=== PATIENT | female | born 1945 | race Hispanic/Latino ===

== ENCOUNTER 2017-09-01 00:54 | Inpatient (IN) | payer MEDICARE ==
[~2017-09-01] VITALS: Ht 160 cm; Wt 55.8 kg
[~2017-09-01 00:54] MED LIST: LISI-613 PO; PRAV20TA4 PO; SERT25TA5 PO
[2017-09-01] MEDS ORDERED: ASPIRIN 325 MG TABLET ONE (01:18)
[2017-09-01] MEDS ORDERED: NITROGLYCERIN 1GM/1 INCH PACKET TD ONE (01:19)
[2017-09-01 01:39] LABS: BASOPHILS % (AUTO) 0.6 % (0.0-5.0); EOSINOPHILS % (AUTO) 0.8 % (0.0-8.0); HEMATOCRIT 43.8 % (36-48); LYMPHOCYTES % (AUTO) 71.3 % (21.0-51.0); MEAN CORPUSCULAR HEMOGLOBIN 30.6 pg (27.0-33.0); MEAN CORPUSCULAR HGB CONC 33.8 g/dL (32.0-36.0); MEAN CORPUSCULAR VOLUME 90.5 fL (79-99); MONOCYTES % (AUTO) 4.4 % (3.0-13.0); NEUTROPHILS % (AUTO) 22.9 % (40.0-77.0); NUCLEATED RED BLOOD CELLS 0.2 % (0.0-0.19); PLATELET COUNT (AUTO) 264 K/uL (130-400); RED BLOOD CELL COUNT(AUTO) 4.84 MIL/uL (4.00-5.50); RED CELL DISTRIBUTION WIDTH 12.4 % (11.0-15.5); WHITE BLOOD COUNT (AUTO) 21.5 K/uL (4.8-10.8)
[2017-09-01 01:51] LABS: CREATININE 0.6 mg/dL (0.5-1.5); POTASSIUM 4.5 mmol/L (3.5-5.1)
[2017-09-01 01:54] LABS: APPEARANCE,URINE Clear (CLEAR); BILIRUBIN,URINE Negative (NEGATIVE); COLOR,URINE Yellow (YELLOW); GLUCOSE, URINE (UA) Negative (NEGATIVE); KETONES,URINE Negative (NEGATIVE); LEUKOCYTE ESTERASE ,URINE Negative (NEGATIVE); NITRATE,URINE Negative (NEGATIVE); OCCULT BLOOD,URINE Negative (NEGATIVE); PROTEIN,URINE Negative (NEGATIVE); UROBILINOGEN,URINE 0.2 mg/dL (0.2-1.0)
[2017-09-01 01:56] LABS: INR 0.96 (0.85-1.15); PARTIAL THROMBOPLASTIN TIME 24.7 SEC (26.3-35.5); PROTHROMBIN TIME 10.1 SEC (9.6-11.6)
[2017-09-01 02:12] LABS: ALBUMIN 3.3 g/dL (3.5-5.0); B-TYPE NATRIURETIC PEPTIDE 57 pg/mL (0-100); BILIRUBIN,TOTAL 0.3 mg/dL (0.2-1.0); CREATINE KINASE MB 0.7 ng/mL (0.5-3.6); TOTAL PROTEIN, SERUM 6.8 g/dL (6.0-8.3)
[2017-09-01] MEDS ORDERED: ACETAMINOPHEN EXTRA STRENGTH 500 MG TABLET ONE (03:30)
[2017-09-01] MEDS ORDERED: KETOROLAC TROMETHAMINE 30MG/ML IV PRN (06:00)
[2017-09-01] MEDS ORDERED: CLONIDINE HCL 0.1 MG TABLET PO PRN (06:00)
[2017-09-01] MEDS ORDERED: ONDANSETRON HCL 4 MG/2 ML VIAL IVP PRN (06:00)
[2017-09-01] MEDS ORDERED: NITROGLYCERIN 0.4 MG SL TAB SL PRN (06:00)
[2017-09-01] MEDS ORDERED: MORPHINE SULFATE 2 MG/ML 1ML SYG IVP PRN (06:00)
[2017-09-01] MEDS ORDERED: ACETAMINOPHEN 325 MG TAB PO PRN (06:00)
[2017-09-01] MEDS ORDERED: HYDRALAZINE HCL 20 MG/ML VIAL IV PRN (06:30)
[2017-09-01] MEDS ORDERED: FAMOTIDINE/PF 20 MG/2 ML VIAL IV ONE (06:32)
[2017-09-01] MEDS ORDERED: GADOBENATE DIMEGLUMINE 10 ML IV ONE (06:36)
[2017-09-01] MEDS ORDERED: KETOROLAC TROMETHAMINE 30MG/ML ONE (08:52)
[2017-09-01 11:20] LABS: CREATINE KINASE MB 0.5 ng/mL (0.5-3.6); CREATINE KINASE, TOTAL 15 U/L (21-232); MYOGLOBIN 35 ng/mL (10-92); TROPONIN I < 0.04 ng/mL (0.00-0.06)
[2017-09-01 18:00] VITALS: BP 130/69
[2017-09-01] MEDS ORDERED: PROP40TA7 PO (18:07)
[2017-09-01] MEDS ORDERED: SIMV20TA6 PO (18:07)
[2017-09-01] MEDS ORDERED: ASPI-1197 PO (18:07)
[2017-09-01] MEDS ORDERED: OMEP40CA37 PO (18:07)
[2017-09-01 19:58] VITALS: BP 101/65
[2017-09-01] MEDS: PROPRANOLOL HCL 20 MG TAB PO SCH (21:00)
[2017-09-01] MEDS: ATORVASTATIN CALCIUM 10 MG TABLET PO SCH (21:51)
[2017-09-01] MEDS: GABAPENTIN 100 MG CAPSULE PO SCH (21:51)
[2017-09-01] MEDS: FAMOTIDINE 20MG TAB 20 MG TAB PO SCH (21:51)
[2017-09-01] MEDS: ENOXAPARIN SODIUM 40 MG/0.4 ML SYRINGE SQ SCH (22:18)
[2017-09-01 23:14] VITALS: BP 103/64
[2017-09-02 04:00] VITALS: BP 124/63
[2017-09-02 07:00] VITALS: BP 129/85
[2017-09-02] MEDS: GABAPENTIN 100 MG CAPSULE PO SCH ×2 (10:07→21:20)
[2017-09-02] MEDS: PROPRANOLOL HCL 20 MG TAB PO SCH ×2 (10:07→21:20)
[2017-09-02] MEDS: PANTOPRAZOLE SODIUM 40 MG TABLET.DR PO SCH (10:07)
[2017-09-02] MEDS: FAMOTIDINE 20MG TAB 20 MG TAB PO SCH ×2 (10:07→21:20)
[2017-09-02] MEDS: ASPIRIN 81MG TAB.CHEW PO SCH (10:07)
[2017-09-02] MEDS: ENOXAPARIN SODIUM 40 MG/0.4 ML SYRINGE SQ SCH (10:08)
[2017-09-02 11:00] VITALS: BP 128/78
[2017-09-02 16:00] VITALS: BP 120/75
[2017-09-02 20:01] VITALS: BP 136/77
[2017-09-02] MEDS: ATORVASTATIN CALCIUM 10 MG TABLET PO SCH (21:20)
[2017-09-03] VITALS: BP 100/53
[2017-09-03 03:39] LABS: HEMATOCRIT 40.8 % (36-48); MEAN CORPUSCULAR HEMOGLOBIN 31.1 pg (27.0-33.0); MEAN CORPUSCULAR HGB CONC 34.6 g/dL (32.0-36.0); MEAN CORPUSCULAR VOLUME 89.9 fL (79-99); NUCLEATED RED BLOOD CELLS 0.1 % (0.0-0.19); PLATELET COUNT (AUTO) 257 K/uL (130-400); RED BLOOD CELL COUNT(AUTO) 4.53 MIL/uL (4.00-5.50); RED CELL DISTRIBUTION WIDTH 12.7 % (11.0-15.5); WHITE BLOOD COUNT (AUTO) 17.3 K/uL (4.8-10.8)
[2017-09-03 03:53] VITALS: BP 149/74
[2017-09-03 04:39] LABS: EOSINOPHILS % (MANUAL) 6 % (1-6); LYMPHOCYTES % (MANUAL) 60 % (22-44); MONOCYTES % (MANUAL) 2 % (2-9); SEGMENTED NEUTROPHILS % 32 % (40-70)
[2017-09-03 04:40] LABS: MAN.DIFF COMMENT-IMPRESSION MANUAL DIFFERENTIAL; PLATELET MORPHOLOGY COMMENT ADEQUATE
[2017-09-03 07:00] VITALS: BP 110/74
[2017-09-03] MEDS ORDERED: REGADENOSON 0.4 MG/5 ML PF SYG IVP SCH (10:30)
[2017-09-03] MEDS ORDERED: GABA100C PO (10:49)
[2017-09-03 11:00] VITALS: BP 149/83
[2017-09-03] MEDS: FAMOTIDINE 20MG TAB 20 MG TAB PO SCH (15:07)
[2017-09-03] MEDS: ASPIRIN 81MG TAB.CHEW PO SCH (15:07)
[2017-09-03] MEDS: PROPRANOLOL HCL 20 MG TAB PO SCH (15:07)
[2017-09-03] MEDS: GABAPENTIN 100 MG CAPSULE PO SCH (15:08)
[2017-09-03] MEDS: PANTOPRAZOLE SODIUM 40 MG TABLET.DR PO SCH (15:08)
[2017-09-03] MEDS: ENOXAPARIN SODIUM 40 MG/0.4 ML SYRINGE SQ SCH (15:09)
[2017-09-03 16:00] VITALS: BP 108/57
== END 2017-09-03 18:57 | disposition home or self-care (01) | DRG 206 ==
LOC: EDH 00:54 → EDHIP 05:39 → OBSVTOIN 05:39 → 2AH 17:46
PROVIDERS: ADMIT Internal Medicine Nephrology; ATTEND Internal Medicine Nephrology
DX: M94.0 Chondrocostal junction syndrome [Tietze] (principal); R07.9 Chest pain, unspecified; D32.0 Benign neoplasm of cerebral meninges; I10 Essential (primary) hypertension; D72.829 Elevated white blood cell count, unspecified; E78.5 Hyperlipidemia, unspecified; F32.9 Major depressive disorder, single episode, unspecified; K74.60 Unspecified cirrhosis of liver; T38.0X5A Adverse effect of glucocorticoids and synthetic analogues, initial encounter; F41.9 Anxiety disorder, unspecified; Z79.899 Other long term (current) drug therapy; Z90.710 Acquired absence of both cervix and uterus; Z90.49 Acquired absence of other specified parts of digestive tract; Y92.89 Other specified places as the place of occurrence of the external cause
CPT/HCPCS: 36415; 70450; 70544; 70553; 71045; 78452; 80053; 81003; 82550; 82553; 82948; 83874; 83880; 84484; 85025; 85610; 85730; 93005; 93017; 93306; 96374; A9500; A9577; J1650; J1885; J2785; J3490

== ENCOUNTER → 2017-12-14 | Outpatient (CLI) | payer OTHER, MEDICARE ==
[~2017-12-14] MED LIST changes: +ASPI-1197 PO; +GABA100C PO; -LISI-613 PO; +OMEP40CA37 PO; -PRAV20TA4 PO; +PROP40TA7 PO; -SERT25TA5 PO; +SIMV20TA6 PO
== END | disposition home or self-care (01) ==
LOC: RAH 08:45
PROVIDERS: ATTEND Internal Medicine Gastroenterology
DX: K74.60 Unspecified cirrhosis of liver (principal)
CPT/HCPCS: 76700; 93975

== ENCOUNTER 2018-02-17 19:10 | Emergency (ER) | payer OTHER, MEDICARE ==
[2018-02-17 19:57] LABS: APPEARANCE,URINE Clear (CLEAR); BILIRUBIN,URINE Negative (NEGATIVE); COLOR,URINE Yellow (YELLOW); GLUCOSE, URINE (UA) Negative (NEGATIVE); KETONES,URINE Negative (NEGATIVE); LEUKOCYTE ESTERASE ,URINE Negative (NEGATIVE); NITRATE,URINE Negative (NEGATIVE); OCCULT BLOOD,URINE Negative (NEGATIVE); PH,URINE 7.5 (5.0-8.0); PROTEIN,URINE Negative (NEGATIVE); UROBILINOGEN,URINE 0.2 mg/dL (0.2-1.0)
[2018-02-17] MEDS ORDERED: MECLIZINE HCL 25 MG TABLET ONE (20:23)
[2018-02-17] MEDS ORDERED: SODIUM CHLORIDE 0.9% 500ML 500 ML IV ONE (20:23)
[2018-02-17 20:31] LABS: BASOPHILS % (AUTO) 0.3 % (0.0-5.0); EOSINOPHILS % (AUTO) 1.9 % (0.0-8.0); HEMATOCRIT 40.7 % (36-48); MEAN CORPUSCULAR HEMOGLOBIN 29.6 pg (27.0-33.0); MEAN CORPUSCULAR HGB CONC 33.2 g/dL (32.0-36.0); MEAN CORPUSCULAR VOLUME 89.3 fL (79-99); MONOCYTES % (AUTO) 3.6 % (3.0-13.0); NEUTROPHILS % (AUTO) 21.6 % (40.0-77.0); NUCLEATED RED BLOOD CELLS 0.5 % (0.0-0.19); PLATELET COUNT (AUTO) 201 K/uL (130-400); RED BLOOD CELL COUNT(AUTO) 4.56 MIL/uL (4.00-5.50); RED CELL DISTRIBUTION WIDTH 13.5 % (11.0-15.5); WHITE BLOOD COUNT (AUTO) 14.5 K/uL (4.8-10.8)
[2018-02-17 20:40] LABS: CREATININE 0.6 mg/dL (0.5-1.5)
[2018-02-17 20:46] LABS: ALBUMIN 3.5 g/dL (3.5-5.0); BILIRUBIN,TOTAL 0.5 mg/dL (0.2-1.0); TOTAL PROTEIN, SERUM 6.6 g/dL (6.0-8.3)
[2018-02-17 20:52] LABS: LYMPHOCYTES % (AUTO) 72.6 % (21.0-51.0)
[2018-02-17] MEDS ORDERED: IBUPROFEN 600 MG TABLET ONE (22:11)
[2018-02-17 22:31] LABS: RAPID GROUP A STREP NEGATIVE (NEGATIVE)
== END 2018-02-18 00:19 | disposition home or self-care (01) ==
LOC: EDH 19:10
DX: H81.399 Other peripheral vertigo, unspecified ear (principal); R51 Headache; I10 Essential (primary) hypertension; E78.5 Hyperlipidemia, unspecified; F32.9 Major depressive disorder, single episode, unspecified
CPT/HCPCS: 36415; 70450; 71045; 80053; 81003; 85025; 87804 ×2; 87880; 93005; 96360; 96361; 99284; J7040

== ENCOUNTER → 2018-11-23 | Outpatient (CLI) | payer OTHER, MEDICARE | END | disposition home or self-care (01) | LOC: RAH 08:17 | PROVIDERS: ATTEND Internal Medicine Gastroenterology | DX: K74.60 Unspecified cirrhosis of liver (principal); Z90.49 Acquired absence of other specified parts of digestive tract | CPT/HCPCS: 76700; 93975 ==

== ENCOUNTER → 2018-12-16 | Outpatient (CLI) | payer OTHER, MEDICARE ==
[~2018-12-16] MED LIST changes: +IOHEXOL 350 MG/ML 100ML INFUS..BTL IV ONE; +OMEP40CA13 PO; -OMEP40CA37 PO; +SIMV-43 PO; -SIMV20TA6 PO
== END | disposition home or self-care (01) ==
LOC: RAH 08:06
PROVIDERS: ATTEND Internal Medicine Gastroenterology
DX: I70.0 Atherosclerosis of aorta (principal); K57.90 Diverticulosis of intestine, part unspecified, without perforation or abscess without bleeding; N32.89 Other specified disorders of bladder; I51.7 Cardiomegaly; M47.815 Spondylosis without myelopathy or radiculopathy, thoracolumbar region
CPT/HCPCS: 74178; Q9967

== ENCOUNTER 2019-01-19 14:38 | Emergency (ER) | payer OTHER, MEDICARE ==
[~2019-01-19 14:38] MED LIST changes: -IOHEXOL 350 MG/ML 100ML INFUS..BTL IV ONE
[2019-01-19] MEDS ORDERED: ONDANSETRON HCL 4 MG/2 ML VIAL ONE (15:11)
[2019-01-19] MEDS ORDERED: ASPIRIN 325 MG TABLET ONE (15:11)
[2019-01-19 15:15] LABS: BASOPHILS % (AUTO) 0.6 % (0.0-5.0); EOSINOPHILS % (AUTO) 0.9 % (0.0-8.0); HEMATOCRIT 43.2 % (36-48); MEAN CORPUSCULAR HEMOGLOBIN 33.3 pg (27.0-33.0); MEAN CORPUSCULAR HGB CONC 33.8 g/dL (32.0-36.0); MEAN CORPUSCULAR VOLUME 98.5 fL (79-99); MONOCYTES % (AUTO) 2.7 % (3.0-13.0); NEUTROPHILS % (AUTO) 25.8 % (40.0-77.0); NUCLEATED RED BLOOD CELLS 0.6 % (0.0-0.19); PLATELET COUNT (AUTO) 228 K/uL (130-400); RED BLOOD CELL COUNT(AUTO) 4.38 MIL/uL (4.00-5.50); WHITE BLOOD COUNT (AUTO) 20.8 K/uL (4.8-10.8)
[2019-01-19 15:26] LABS: CREATININE 0.7 mg/dL (0.5-1.5)
[2019-01-19 15:27] LABS: INR 0.95 (0.85-1.15); PARTIAL THROMBOPLASTIN TIME 24.8 SEC (26.3-35.5)
[2019-01-19 15:31] LABS: ALBUMIN 3.6 g/dL (3.5-5.0); BILIRUBIN,TOTAL 0.4 mg/dL (0.2-1.0); TOTAL PROTEIN, SERUM 6.9 g/dL (6.0-8.3)
== END 2019-01-19 17:03 | disposition home or self-care (01) ==
LOC: EDH 14:38
DX: I10 Essential (primary) hypertension (principal); R07.9 Chest pain, unspecified; E78.5 Hyperlipidemia, unspecified; F32.9 Major depressive disorder, single episode, unspecified; K74.60 Unspecified cirrhosis of liver
CPT/HCPCS: 36415; 71045; 74176; 80053; 82550; 84484; 85025; 85610; 85730; 93005; 96374; J2405

== ENCOUNTER 2019-02-10 14:12 | Emergency (ER) | payer OTHER, MEDICARE ==
[2019-02-10] MEDS ORDERED: KETOROLAC TROMETHAMINE 30MG/ML ONE (14:40)
[2019-02-10 14:53] LABS: BASOPHILS % (AUTO) 0.3 % (0.0-5.0); EOSINOPHILS % (AUTO) 0.7 % (0.0-8.0); HEMATOCRIT 41.6 % (36-48); LYMPHOCYTES % (AUTO) 48.5 % (21.0-51.0); MEAN CORPUSCULAR HEMOGLOBIN 32.7 pg (27.0-33.0); MEAN CORPUSCULAR HGB CONC 33.8 g/dL (32.0-36.0); MEAN CORPUSCULAR VOLUME 96.8 fL (79-99); MONOCYTES % (AUTO) 2.9 % (3.0-13.0); NEUTROPHILS % (AUTO) 47.6 % (40.0-77.0); PLATELET COUNT (AUTO) 253 K/uL (130-400); RED BLOOD CELL COUNT(AUTO) 4.29 MIL/uL (4.00-5.50); RED CELL DISTRIBUTION WIDTH 13.2 % (11.0-15.5); WHITE BLOOD COUNT (AUTO) 22.3 K/uL (4.8-10.8)
[2019-02-10 15:06] LABS: CREATININE 0.7 mg/dL (0.5-1.5); POTASSIUM 4.2 mmol/L (3.5-5.1)
== END 2019-02-10 16:56 | disposition home or self-care (01) ==
LOC: EDH 14:12
DX: R51 Headache (principal); R11.0 Nausea; I10 Essential (primary) hypertension; E78.5 Hyperlipidemia, unspecified; F32.9 Major depressive disorder, single episode, unspecified; K74.60 Unspecified cirrhosis of liver; Z90.49 Acquired absence of other specified parts of digestive tract; Z90.710 Acquired absence of both cervix and uterus
CPT/HCPCS: 36415; 70450; 80048; 85025; 87804 ×2; 93005; 96374; 99285; J1885

== ENCOUNTER 2020-04-14 20:30 | Inpatient (IN) | payer OTHER, MEDICARE ==
[~2020-04-14] VITALS: Ht 157.5 cm; Wt 57.7 kg
[2020-04-14 21:12] LABS: BASOPHILS % (AUTO) 0.4 % (0.0-5.0); EOSINOPHILS % (AUTO) 0.6 % (0.0-8.0); HEMATOCRIT 46.3 % (36-48); LYMPHOCYTES % (AUTO) 75.6 % (21.0-51.0); MEAN CORPUSCULAR HEMOGLOBIN 30.5 pg (27.0-33.0); MEAN CORPUSCULAR HGB CONC 32.4 g/dL (32.0-36.0); MEAN CORPUSCULAR VOLUME 94.1 fL (79-99); MONOCYTES % (AUTO) 2.1 % (3.0-13.0); NEUTROPHILS % (AUTO) 20.7 % (40.0-77.0); PLATELET COUNT (AUTO) 370 K/uL (130-400); RED BLOOD CELL COUNT(AUTO) 4.92 MIL/uL (4.00-5.50); RED CELL DISTRIBUTION WIDTH 13.2 % (11.0-15.5)
[2020-04-14 21:15] LABS: WHITE BLOOD COUNT (AUTO) 37.8 K/uL (4.8-10.8)
[2020-04-14 21:21] LABS: CREATININE 0.8 mg/dL (0.5-1.5); POTASSIUM 5.2 mmol/L (3.5-5.1)
[2020-04-14 21:23] LABS: INR 0.96 (0.85-1.15); PROTHROMBIN TIME 10.5 SEC (9.6-11.6)
[2020-04-14 21:24] LABS: PARTIAL THROMBOPLASTIN TIME 24.3 SEC (26.3-35.5)
[2020-04-14 21:27] LABS: ALBUMIN 3.9 g/dL (3.5-5.0); BILIRUBIN,TOTAL 0.5 mg/dL (0.2-1.0); TOTAL PROTEIN, SERUM 7.2 g/dL (6.0-8.3)
[2020-04-14 21:56] LABS: EOSINOPHILS % (MANUAL) 2 % (1-6); LYMPHOCYTES % (MANUAL) 83 % (22-44); MONOCYTES % (MANUAL) 3 % (2-9); SEGMENTED NEUTROPHILS % 12 % (40-70)
[2020-04-14 21:57] LABS: MAN.DIFF COMMENT-IMPRESSION MANUAL DIFFERENTIAL; PLATELET MORPHOLOGY COMMENT ADEQUATE
[2020-04-14 22:08] LABS: RAPID GROUP A STREP NEGATIVE (NEGATIVE)
[2020-04-14] MEDS ORDERED: SODIUM POLYSTYRENE SULFONATE 15 GM/60 ML ML ONE (22:14)
[2020-04-14 22:31] LABS: CRP QUANTITATIVE < 2.00 mg/L (0.00-9.0)
[2020-04-14 22:33] LABS: APPEARANCE,URINE Clear (CLEAR); BILIRUBIN,URINE Negative (NEGATIVE); COLOR,URINE Yellow (YELLOW); GLUCOSE, URINE (UA) Negative (NEGATIVE); KETONES,URINE Negative (NEGATIVE); LEUKOCYTE ESTERASE ,URINE Negative (NEGATIVE); NITRATE,URINE Negative (NEGATIVE); OCCULT BLOOD,URINE Negative (NEGATIVE); PH,URINE 7.5 (5.0-8.0); PROTEIN,URINE Negative (NEGATIVE); UROBILINOGEN,URINE 0.2 mg/dL (0.2-1.0)
[2020-04-14] MEDS ORDERED: ASPIRIN 81MG TAB.CHEW ONE (22:41)
[2020-04-14] MEDS ORDERED: ONDANSETRON HCL 4 MG/2 ML VIAL IV PRN (23:30)
[2020-04-15] MEDS: PROPRANOLOL HCL 20 MG TAB PO SCH ×2 (06:45→18:45)
[2020-04-15 08:05] LABS: BASOPHILS % (AUTO) 0.3 % (0.0-5.0); EOSINOPHILS % (AUTO) 0.7 % (0.0-8.0); HEMATOCRIT 42.6 % (36-48); LYMPHOCYTES % (AUTO) 80.3 % (21.0-51.0); MEAN CORPUSCULAR HEMOGLOBIN 30.4 pg (27.0-33.0); MEAN CORPUSCULAR HGB CONC 31.9 g/dL (32.0-36.0); MEAN CORPUSCULAR VOLUME 95.1 fL (79-99); MONOCYTES % (AUTO) 2.2 % (3.0-13.0); NEUTROPHILS % (AUTO) 15.9 % (40.0-77.0); PLATELET COUNT (AUTO) 308 K/uL (130-400); RED BLOOD CELL COUNT(AUTO) 4.48 MIL/uL (4.00-5.50); RED CELL DISTRIBUTION WIDTH 13.2 % (11.0-15.5); WHITE BLOOD COUNT (AUTO) 27.3 K/uL (4.8-10.8)
[2020-04-15] MEDS ORDERED: ATORVASTATIN CALCIUM 20 MG TABLET ONE (08:22)
[2020-04-15] MEDS ORDERED: ASPIRIN 81MG TAB.CHEW ONE (08:22)
[2020-04-15 08:43] LABS: ALBUMIN 3.2 g/dL (3.5-5.0); BILIRUBIN,TOTAL 0.7 mg/dL (0.2-1.0); CREATININE 0.7 mg/dL (0.5-1.5); POTASSIUM 4.9 mmol/L (3.5-5.1); TOTAL PROTEIN, SERUM 6.1 g/dL (6.0-8.3)
[2020-04-15] MEDS: ASPIRIN 81MG TAB.CHEW PO SCH (09:00)
[2020-04-15] MEDS: ATORVASTATIN CALCIUM 20 MG TABLET PO SCH (09:00)
[2020-04-15 09:16] LABS: HEMOGLOBIN A1C 5.9 % (4.0-6.0)
[2020-04-15] MEDS: ENOXAPARIN SODIUM 30 MG/0.3 ML SQ SCH (14:45)
[2020-04-15] MEDS ORDERED: POTASSIUM CHLORIDE 20MEQ/100ML 100 ML IV PRN ×2 (14:45)
[2020-04-15] MEDS ORDERED: MAGNESIUM 2GM PREMIX 50ML 50 ML IV PRN (14:45)
[2020-04-15] MEDS ORDERED: POTASSIUM CHLORIDE 10% ELIXIR 20 MEQ/15 ML UDCUP PO PRN (14:45)
[2020-04-15] MEDS ORDERED: DEXTROSE 50%-WATER 50 ML DISP.SYRIN IV PRN (14:45)
[2020-04-15] MEDS: PANTOPRAZOLE SODIUM 40 MG TABLET.DR PO SCH (14:45)
[2020-04-15] MEDS ORDERED: GLUCAGON 1MG KIT 1 MG ML IM PRN (14:45)
[2020-04-15] MEDS ORDERED: LIDOCAINE HCL-MPF 1% 2ML VIAL IV PRN ×2 (14:45)
[2020-04-15] MEDS ORDERED: POTASSIUM CHLORIDE 20 MEQ ERTAB PO PRN (14:45)
[2020-04-15] MEDS ORDERED: PANTOPRAZOLE SODIUM 40 MG TABLET.DR ONE (16:26)
[2020-04-15] MEDS ORDERED: ENOXAPARIN SODIUM 30 MG/0.3 ML SQ ONE (16:26)
[2020-04-16 03:58] LABS: HEMATOCRIT 42.1 % (36-48); MEAN CORPUSCULAR HEMOGLOBIN 30.9 pg (27.0-33.0); MEAN CORPUSCULAR HGB CONC 32.5 g/dL (32.0-36.0); MEAN CORPUSCULAR VOLUME 94.8 fL (79-99); NUCLEATED RED BLOOD CELLS 0.2 % (0.0-0.19); RED BLOOD CELL COUNT(AUTO) 4.44 MIL/uL (4.00-5.50); RED CELL DISTRIBUTION WIDTH 13.2 % (11.0-15.5); WHITE BLOOD COUNT (AUTO) 26.5 K/uL (4.8-10.8)
[2020-04-16 04:13] LABS: CREATININE 0.8 mg/dL (0.5-1.5); MAGNESIUM 1.8 mg/dL (1.80-2.40); POTASSIUM 3.8 mmol/L (3.5-5.1)
[2020-04-16] MEDS: PROPRANOLOL HCL 20 MG TAB PO SCH ×2 (06:45→18:45)
[2020-04-16] MEDS ORDERED: ASPIRIN 81MG TAB.CHEW ONE (08:36)
[2020-04-16] MEDS ORDERED: PANTOPRAZOLE SODIUM 40 MG TABLET.DR ONE (08:36)
[2020-04-16] MEDS ORDERED: ENOXAPARIN SODIUM 30 MG/0.3 ML SQ ONE (08:36)
[2020-04-16] MEDS ORDERED: ATORVASTATIN CALCIUM 20 MG TABLET ONE (08:36)
[2020-04-16] MEDS: ENOXAPARIN SODIUM 30 MG/0.3 ML SQ SCH (09:00)
[2020-04-16] MEDS: PANTOPRAZOLE SODIUM 40 MG TABLET.DR PO SCH (09:00)
[2020-04-16] MEDS: ASPIRIN 81MG TAB.CHEW PO SCH (09:00)
[2020-04-16] MEDS: ATORVASTATIN CALCIUM 20 MG TABLET PO SCH (09:00)
[2020-04-16] MEDS ORDERED: ZOSYN 3.375GM+NS 50ML 50 ML IV SCH (10:00)
[2020-04-16] MEDS ORDERED: ZOSYN 3.375GM+NS 50ML 50 ML IV ONE ×2 (10:47→21:25)
[2020-04-16] MEDS ORDERED: VANCOMYCIN PROTOCOL PER PHARMACY IV SCH (15:15)
[2020-04-16] MEDS ORDERED: VANCOMYCIN 1GM+NS 250ML 250 ML IV SCH (16:00)
[2020-04-16] MEDS ORDERED: VANCOMYCIN 1GM+NS 250ML 250 ML IV ONE (17:06)
[2020-04-17 04:13] LABS: HEMATOCRIT 41.6 % (36-48); MEAN CORPUSCULAR HEMOGLOBIN 30.4 pg (27.0-33.0); MEAN CORPUSCULAR HGB CONC 32.7 g/dL (32.0-36.0); MEAN CORPUSCULAR VOLUME 93.1 fL (79-99); NUCLEATED RED BLOOD CELLS 0.2 % (0.0-0.19); RED BLOOD CELL COUNT(AUTO) 4.47 MIL/uL (4.00-5.50); WHITE BLOOD COUNT (AUTO) 28.9 K/uL (4.8-10.8)
[2020-04-17 04:40] LABS: CREATININE 0.9 mg/dL (0.5-1.5); MAGNESIUM 1.8 mg/dL (1.80-2.40); POTASSIUM 3.6 mmol/L (3.5-5.1)
[2020-04-17] MEDS: PROPRANOLOL HCL 20 MG TAB PO SCH ×2 (06:45→18:45)
[2020-04-17] MEDS ORDERED: ATORVASTATIN CALCIUM 20 MG TABLET ONE (07:45)
[2020-04-17] MEDS ORDERED: ASPIRIN 81MG TAB.CHEW ONE (07:45)
[2020-04-17] MEDS ORDERED: ZOSYN 3.375GM+NS 50ML 50 ML IV ONE (07:46)
[2020-04-17] MEDS ORDERED: PANTOPRAZOLE SODIUM 40 MG TABLET.DR ONE (07:46)
[2020-04-17] MEDS ORDERED: ENOXAPARIN SODIUM 30 MG/0.3 ML SQ ONE (07:46)
[2020-04-17] MEDS ORDERED: ACETAMINOPHEN 325 MG TAB ONE (07:48)
[2020-04-17] MEDS: PANTOPRAZOLE SODIUM 40 MG TABLET.DR PO SCH (09:00)
[2020-04-17] MEDS: ATORVASTATIN CALCIUM 20 MG TABLET PO SCH (09:00)
[2020-04-17] MEDS: ENOXAPARIN SODIUM 30 MG/0.3 ML SQ SCH (09:00)
[2020-04-17] MEDS: ASPIRIN 81MG TAB.CHEW PO SCH (09:00)
[2020-04-17] MEDS ORDERED: CYAN250014 PO (09:51)
[2020-04-17] MEDS ORDERED: CALC-131 PO (09:51)
[2020-04-17] MEDS: UNASYN 3GM+NS 100ML 100 ML IV SCH ×2 (15:15→21:15)
[2020-04-17] MEDS ORDERED: AMPICILLIN SODIUM/SULBACTAM NA 1.5GM VIAL ONE (17:11)
[2020-04-17] MEDS ORDERED: SODIUM CHLORIDE 0.9% 100 ML IV ONE (17:11)
[2020-04-17 22:50] VITALS: BP 106/74
[2020-04-18] MEDS: PROPRANOLOL HCL 20 MG TAB PO SCH ×2 (00:07→18:45)
[2020-04-18] MEDS: ACETAMINOPHEN 325 MG TAB PO PRN (00:12)
[2020-04-18] MEDS: UNASYN 3GM+NS 100ML 100 ML IV SCH ×4 (04:07→21:54)
[2020-04-18 05:30] VITALS: BP 95/59
[2020-04-18 06:24] LABS: BASOPHILS % (AUTO) 0.3 % (0.0-5.0); EOSINOPHILS % (AUTO) 0.8 % (0.0-8.0); HEMATOCRIT 39.8 % (36-48); LYMPHOCYTES % (AUTO) 74.7 % (21.0-51.0); MEAN CORPUSCULAR HEMOGLOBIN 31.1 pg (27.0-33.0); MEAN CORPUSCULAR HGB CONC 32.4 g/dL (32.0-36.0); MEAN CORPUSCULAR VOLUME 95.9 fL (79-99); MONOCYTES % (AUTO) 2.1 % (3.0-13.0); NEUTROPHILS % (AUTO) 21.7 % (40.0-77.0); PLATELET COUNT (AUTO) 271 K/uL (130-400); RED BLOOD CELL COUNT(AUTO) 4.15 MIL/uL (4.00-5.50); RED CELL DISTRIBUTION WIDTH 13.2 % (11.0-15.5); WHITE BLOOD COUNT (AUTO) 26.2 K/uL (4.8-10.8)
[2020-04-18 06:33] LABS: CREATININE 0.7 mg/dL (0.5-1.5); MAGNESIUM 2.6 mg/dL (1.80-2.40); POTASSIUM 4.1 mmol/L (3.5-5.1)
[2020-04-18 07:43] VITALS: BP 109/70
[2020-04-18] MEDS: ASPIRIN 81MG TAB.CHEW PO SCH (08:45)
[2020-04-18] MEDS: ATORVASTATIN CALCIUM 20 MG TABLET PO SCH (08:46)
[2020-04-18] MEDS: PANTOPRAZOLE SODIUM 40 MG TABLET.DR PO SCH (08:46)
[2020-04-18] MEDS: BACLOFEN 10 MG TABLET PO SCH ×3 (08:46→21:53)
[2020-04-18] MEDS: ENOXAPARIN SODIUM 30 MG/0.3 ML SQ SCH (08:47)
[2020-04-18 11:06] VITALS: BP 124/59
[2020-04-18 16:23] VITALS: BP 107/67
[2020-04-18 20:11] VITALS: BP 121/75
[2020-04-18 23:35] VITALS: BP 131/68
[2020-04-19] MEDS: UNASYN 3GM+NS 100ML 100 ML IV SCH ×2 (03:26→09:19)
[2020-04-19 03:48] VITALS: BP 120/76
[2020-04-19 04:04] LABS: BASOPHILS % (AUTO) 0.2 % (0.0-5.0); HEMATOCRIT 37.7 % (36-48); LYMPHOCYTES % (AUTO) 76.9 % (21.0-51.0); MEAN CORPUSCULAR HEMOGLOBIN 31.2 pg (27.0-33.0); MEAN CORPUSCULAR HGB CONC 32.9 g/dL (32.0-36.0); MEAN CORPUSCULAR VOLUME 94.7 fL (79-99); MONOCYTES % (AUTO) 2.2 % (3.0-13.0); NEUTROPHILS % (AUTO) 19.4 % (40.0-77.0); PLATELET COUNT (AUTO) 255 K/uL (130-400); RED BLOOD CELL COUNT(AUTO) 3.98 MIL/uL (4.00-5.50); RED CELL DISTRIBUTION WIDTH 13.2 % (11.0-15.5); WHITE BLOOD COUNT (AUTO) 23.6 K/uL (4.8-10.8)
[2020-04-19 04:13] LABS: CREATININE 0.7 mg/dL (0.5-1.5); INR 1.05 (0.85-1.15); POTASSIUM 3.6 mmol/L (3.5-5.1); PROTHROMBIN TIME 11.4 SEC (9.6-11.6)
[2020-04-19] MEDS: PROPRANOLOL HCL 20 MG TAB PO SCH ×3 (06:45→18:23)
[2020-04-19 07:23] VITALS: BP 142/74
[2020-04-19] MEDS: ATORVASTATIN CALCIUM 20 MG TABLET PO SCH (09:19)
[2020-04-19] MEDS: ENOXAPARIN SODIUM 30 MG/0.3 ML SQ SCH (09:19)
[2020-04-19] MEDS: BACLOFEN 10 MG TABLET PO SCH ×3 (09:20→21:44)
[2020-04-19] MEDS: ASPIRIN 81MG TAB.CHEW PO SCH (09:20)
[2020-04-19] MEDS: PANTOPRAZOLE SODIUM 40 MG TABLET.DR PO SCH (09:26)
[2020-04-19] MEDS: ACETAMINOPHEN 325 MG TAB PO PRN (09:59)
[2020-04-19 10:45] VITALS: BP 118/60
[2020-04-19 15:39] LABS: INR 1.05 (0.85-1.15); PROTHROMBIN TIME 11.4 SEC (9.6-11.6)
[2020-04-19 15:41] LABS: PARTIAL THROMBOPLASTIN TIME 26.6 SEC (26.3-35.5)
[2020-04-19 15:54] VITALS: BP 118/71
[2020-04-19] MEDS: AMPICILLIN 2GM+NS 100ML 100 ML IV SCH ×2 (16:36→21:44)
[2020-04-19 20:00] VITALS: BP 124/69
[2020-04-19 22:15] VITALS: BP 152/63
[2020-04-20] VITALS (8 sets, daily range): BP systolic 114–160; BP diastolic 64–94
[2020-04-20] MEDS: AMPICILLIN 2GM+NS 100ML 100 ML IV SCH ×4 (03:08→20:29)
[2020-04-20] MEDS: PROPRANOLOL HCL 20 MG TAB PO SCH ×2 (08:10→20:31)
[2020-04-20] MEDS: ENOXAPARIN SODIUM 30 MG/0.3 ML SQ SCH (08:11)
[2020-04-20] MEDS: ASPIRIN 81MG TAB.CHEW PO SCH (08:13)
[2020-04-20] MEDS: ATORVASTATIN CALCIUM 20 MG TABLET PO SCH (08:13)
[2020-04-20] MEDS: PANTOPRAZOLE SODIUM 40 MG TABLET.DR PO SCH (08:14)
[2020-04-20] MEDS: BACLOFEN 10 MG TABLET PO SCH ×3 (08:14→20:29)
[2020-04-21] MEDS: AMPICILLIN 2GM+NS 100ML 100 ML IV SCH ×3 (02:32→14:15)
[2020-04-21 04:00] VITALS: BP 100/61
[2020-04-21 08:00] VITALS: BP 111/68
[2020-04-21] MEDS: BACLOFEN 10 MG TABLET PO SCH ×2 (09:00→14:00)
[2020-04-21] MEDS: PANTOPRAZOLE SODIUM 40 MG TABLET.DR PO SCH (09:00)
[2020-04-21] MEDS: PROPRANOLOL HCL 20 MG TAB PO SCH (09:00)
[2020-04-21] MEDS: ATORVASTATIN CALCIUM 20 MG TABLET PO SCH (09:00)
[2020-04-21] MEDS: ASPIRIN 81MG TAB.CHEW PO SCH (09:00)
[2020-04-21] MEDS: ENOXAPARIN SODIUM 30 MG/0.3 ML SQ SCH (09:01)
[2020-04-21] MEDS ORDERED: ACETAMINOPHEN EXTRA STRENGTH 500 MG TABLET PO PRN (09:45)
[2020-04-21 12:06] VITALS: BP 97/62
== END 2020-04-21 17:00 | DRG 872 ==
LOC: EDH 20:30 → OBSVTOIN 23:05 → EDHIP 23:05 → 3DH 04-15 04:46 → EDHIP 04-15 04:59 → 3DH 04-17 22:37
PROVIDERS: ADMIT Internal Medicine Critical Care Medicine; ATTEND Internal Medicine Critical Care Medicine
PROC: 05HY33Z Insertion of Infusion Device into Upper Vein, Percutaneous Approach (ICD-10-PCS; principal; 2020-04-20)
DX: A41.2 Sepsis due to unspecified staphylococcus (principal); N39.0 Urinary tract infection, site not specified; E03.9 Hypothyroidism, unspecified; B95.2 Enterococcus as the cause of diseases classified elsewhere; E78.5 Hyperlipidemia, unspecified; K74.60 Unspecified cirrhosis of liver; I10 Essential (primary) hypertension; R53.81 Other malaise; Z20.822 Contact with and (suspected) exposure to COVID-19; Z79.899 Other long term (current) drug therapy; Z79.82 Long term (current) use of aspirin; Z90.710 Acquired absence of both cervix and uterus; Z90.49 Acquired absence of other specified parts of digestive tract; Z88.8 Allergy status to other drugs, medicaments and biological substances; Z83.3 Family history of diabetes mellitus; Z80.9 Family history of malignant neoplasm, unspecified; Z82.49 Family history of ischemic heart disease and other diseases of the circulatory system
CPT/HCPCS: 36415; 70450; 70486; 70544; 70547; 70551; 71045; 72125; 72141; 80048; 80053; 80061; 81003; 82550; 82607; 83036; 83605; 83735; 84484; 85025; 85027; 85610; 85730; 86140; 87040; 87077; 87186; 87426; 87804; 87880; 92610; 93005; 93306; 93356; 97039; C1894; G0378; J0290; J0295; J1650; J2405; J2543; J3370; J3475; U0003

== ENCOUNTER → 2020-07-26 | Outpatient (CLI) | payer OTHER, MEDICARE ==
[~2020-07-26] MED LIST changes: +CALC-131 PO; +CYAN250014 PO; -GABA100C PO
== END | disposition home or self-care (01) ==
LOC: RAH 09:23
PROVIDERS: ATTEND Internal Medicine Gastroenterology
DX: K74.60 Unspecified cirrhosis of liver (principal); Z90.49 Acquired absence of other specified parts of digestive tract
CPT/HCPCS: 76700; 93975

== ENCOUNTER → 2020-08-14 | Emergency (ER) | payer OTHER, MEDICARE ==
[~2020-08-14] VITALS: Ht 154.9 cm; Wt 52.2 kg
[~2020-08-14] MED LIST changes: +ASPIRIN 325MG EC TAB 325 MG TABLET.DR PO SCH; +FAMOTIDINE 20MG TAB 20 MG TAB PO SCH; +HYDROMORPHONE 0.5 MG SYG (0.5MG/0.5ML) IVP SCH; -OMEP40CA13 PO; +OMEP40CA21 PO; +ONDANSETRON HCL 4 MG/2 ML VIAL IVP SCH
[2020-08-14 10:40] VITALS: BP 172/67
[2020-08-14 11:12] LABS: BASOPHILS % (AUTO) 0.2 % (0.0-5.0); EOSINOPHILS % (AUTO) 0.7 % (0.0-8.0); HEMATOCRIT 44.4 % (36-48); LYMPHOCYTES % (AUTO) 72.2 % (21.0-51.0); MEAN CORPUSCULAR HEMOGLOBIN 31.3 pg (27.0-33.0); MEAN CORPUSCULAR HGB CONC 32.9 g/dL (32.0-36.0); MEAN CORPUSCULAR VOLUME 95.3 fL (79-99); MONOCYTES % (AUTO) 2.1 % (3.0-13.0); NEUTROPHILS % (AUTO) 24.6 % (40.0-77.0); PLATELET COUNT (AUTO) 275 K/uL (130-400); RED BLOOD CELL COUNT(AUTO) 4.66 MIL/uL (4.00-5.50); RED CELL DISTRIBUTION WIDTH 12.4 % (11.0-15.5); WHITE BLOOD COUNT (AUTO) 20.3 K/uL (4.8-10.8)
[2020-08-14 11:37] LABS: CREATININE 0.7 mg/dL (0.5-1.5); POTASSIUM 4.5 mmol/L (3.5-5.1)
[2020-08-14 11:41] LABS: BILIRUBIN,TOTAL 0.9 mg/dL (0.2-1.0); TOTAL PROTEIN, SERUM 7.5 g/dL (6.0-8.3)
[2020-08-14 11:59] LABS: INR 1.02 (0.85-1.15); PROTHROMBIN TIME 11.1 SEC (9.6-11.6)
[2020-08-14 12:01] LABS: PARTIAL THROMBOPLASTIN TIME 25.3 SEC (26.3-35.5)
[2020-08-14 12:05] LABS: BASOPHILS % (MANUAL) 1 % (0-2); EOSINOPHILS % (MANUAL) 2 % (1-6); LYMPHOCYTES % (MANUAL) 72 % (22-44); MAN.DIFF COMMENT-IMPRESSION MANUAL DIFFERENTIAL; MONOCYTES % (MANUAL) 4 % (2-9); PLATELET MORPHOLOGY COMMENT ADEQUATE; SEGMENTED NEUTROPHILS % 21 % (40-70)
[2020-08-14 13:00] VITALS: BP 145/85
[2020-08-14 15:35] VITALS: BP 145/78
== END | disposition home or self-care (01) ==
LOC: EDH 10:37
DX: I10 Essential (primary) hypertension (principal); F41.1 Generalized anxiety disorder; Z79.82 Long term (current) use of aspirin; Z79.899 Other long term (current) drug therapy; Z85.6 Personal history of leukemia; Z90.49 Acquired absence of other specified parts of digestive tract
CPT/HCPCS: 36415; 70450; 80053; 84484; 85025; 85610; 85730; 93005; 96374; 99285; J1170; J2405 ×3

== ENCOUNTER 2020-09-02 00:44 | Emergency (ER) | payer OTHER, MEDICARE ==
[~2020-09-02] VITALS: Ht 149.9 cm; Wt 54.4 kg
[~2020-09-02 00:44] MED LIST changes: -ASPIRIN 325MG EC TAB 325 MG TABLET.DR PO SCH; -FAMOTIDINE 20MG TAB 20 MG TAB PO SCH; -HYDROMORPHONE 0.5 MG SYG (0.5MG/0.5ML) IVP SCH; -ONDANSETRON HCL 4 MG/2 ML VIAL IVP SCH
[2020-09-02 01:16] VITALS: BP 147/82
[2020-09-02 02:26] LABS: BASOPHILS % (AUTO) 0.3 % (0.0-5.0); EOSINOPHILS % (AUTO) 1.2 % (0.0-8.0); HEMATOCRIT 42.7 % (36-48); LYMPHOCYTES % (AUTO) 69.5 % (21.0-51.0); MEAN CORPUSCULAR HGB CONC 33.3 g/dL (32.0-36.0); MEAN CORPUSCULAR VOLUME 93.2 fL (79-99); NEUTROPHILS % (AUTO) 25.6 % (40.0-77.0); NUCLEATED RED BLOOD CELLS 0.1 % (0.0-0.19); PLATELET COUNT (AUTO) 281 K/uL (130-400); RED BLOOD CELL COUNT(AUTO) 4.58 MIL/uL (4.00-5.50); RED CELL DISTRIBUTION WIDTH 12.6 % (11.0-15.5); WHITE BLOOD COUNT (AUTO) 22.5 K/uL (4.8-10.8)
[2020-09-02 02:32] VITALS: BP 145/90
[2020-09-02 02:34] LABS: CREATININE 0.7 mg/dL (0.5-1.5); POTASSIUM 4.3 mmol/L (3.5-5.1)
[2020-09-02 02:38] LABS: INR 0.94 (0.85-1.15); PROTHROMBIN TIME 10.3 SEC (9.6-11.6)
[2020-09-02 02:44] LABS: ALBUMIN 3.6 g/dL (3.5-5.0); BILIRUBIN,TOTAL 0.3 mg/dL (0.2-1.0); MAGNESIUM 1.9 mg/dL (1.80-2.40); TOTAL PROTEIN, SERUM 7.1 g/dL (6.0-8.3)
[2020-09-02 02:57] LABS: B-TYPE NATRIURETIC PEPTIDE 41 pg/mL (0-100)
[2020-09-02 03:18] LABS: APPEARANCE,URINE Clear (CLEAR); BILIRUBIN,URINE Negative (NEGATIVE); COLOR,URINE Yellow (YELLOW); GLUCOSE, URINE (UA) Negative (NEGATIVE); KETONES,URINE Negative (NEGATIVE); LEUKOCYTE ESTERASE ,URINE Negative (NEGATIVE); NITRATE,URINE Negative (NEGATIVE); OCCULT BLOOD,URINE Negative (NEGATIVE); PROTEIN,URINE Negative (NEGATIVE); UROBILINOGEN,URINE 0.2 mg/dL (0.2-1.0)
[2020-09-02 03:59] VITALS: BP 106/69
== END 2020-09-02 04:11 | disposition home or self-care (01) ==
LOC: EDH 00:44
DX: I10 Essential (primary) hypertension (principal); E03.9 Hypothyroidism, unspecified; E78.00 Pure hypercholesterolemia, unspecified; Z85.6 Personal history of leukemia; Z79.899 Other long term (current) drug therapy; Z79.82 Long term (current) use of aspirin; Z90.721 Acquired absence of ovaries, unilateral; Z90.49 Acquired absence of other specified parts of digestive tract; Z98.890 Other specified postprocedural states
CPT/HCPCS: 36415; 70450; 71045; 80053; 81003; 82550; 83735; 83880; 84484; 85025; 85610; 93005

== ENCOUNTER 2021-09-29 21:05 | Emergency (ER) | payer OTHER, MEDICARE ==
[~2021-09-29] VITALS: Ht 152.4 cm; Wt 68.5 kg
[2021-09-29] MEDS ORDERED: ORPHENADRINE CITRATE 30 MG/ML ML IVP ONE (22:00)
[2021-09-29] MEDS ORDERED: KETOROLAC 15MG/ML VIAL (15MG/ML) IV ONE (22:00)
[2021-09-29 22:19] LABS: BASOPHILS % (AUTO) 0.1 % (0.0-5.0); EOSINOPHILS % (AUTO) 0.2 % (0.0-8.0); HEMATOCRIT 45.4 % (36-48); LYMPHOCYTES % (AUTO) 82.1 % (21.0-51.0); MEAN CORPUSCULAR HEMOGLOBIN 31.4 pg (27.0-33.0); MEAN CORPUSCULAR HGB CONC 33.5 g/dL (32.0-36.0); MEAN CORPUSCULAR VOLUME 93.8 fL (79-99); MONOCYTES % (AUTO) 1.4 % (3.0-13.0); PLATELET COUNT (AUTO) 153 K/uL (130-400); RED BLOOD CELL COUNT(AUTO) 4.84 MIL/uL (4.00-5.50); RED CELL DISTRIBUTION WIDTH 13.3 % (11.0-15.5)
[2021-09-29 22:26] LABS: CREATININE 0.8 mg/dL (0.5-1.5); POTASSIUM 4.4 mmol/L (3.5-5.1)
[2021-09-29 22:29] LABS: WHITE BLOOD COUNT (AUTO) 41.3 K/uL (4.8-10.8)
[2021-09-29] MEDS ORDERED: TIZA4CAP8 PO (22:54)
[2021-09-29] MEDS ORDERED: ONDA4TAB10 PO (22:54)
[2021-09-29 22:59] LABS: BAND NEUTROPHILS % (MANUAL) 1 % (0-2); LYMPHOCYTES % (MANUAL) 86 % (22-44); MONOCYTES % (MANUAL) 2 % (2-9); SEGMENTED NEUTROPHILS % 11 % (40-70)
[2021-09-29 23:00] LABS: MAN.DIFF COMMENT-IMPRESSION MANUAL DIFFERENTIAL; PLATELET MORPHOLOGY COMMENT ADEQUATE
[2021-09-29 23:07] VITALS: BP 121/84
== END 2021-09-29 23:33 | disposition home or self-care (01) ==
LOC: EDH 21:05
DX: R51.9 Headache, unspecified (principal); M62.830 Muscle spasm of back; R11.0 Nausea; Z20.822 Contact with and (suspected) exposure to COVID-19; I10 Essential (primary) hypertension; E03.9 Hypothyroidism, unspecified; Z85.6 Personal history of leukemia; Z88.1 Allergy status to other antibiotic agents; Z79.899 Other long term (current) drug therapy; Z79.82 Long term (current) use of aspirin; Z90.89 Acquired absence of other organs; Z98.890 Other specified postprocedural states; Z90.49 Acquired absence of other specified parts of digestive tract
CPT/HCPCS: 99285; 96374; 70450; 87635; 96375; 84484; 80048; 85025; 87804 ×2; 36415; 93005; C9803; J1885; J2360

== ENCOUNTER → 2022-03-18 | Outpatient (CLI) | payer OTHER ==
[~2022-03-18] MED LIST changes: +ONDA4TAB10 PO; +TIZA4CAP8 PO
== END | disposition home or self-care (01) ==
LOC: RAH 11:25
PROVIDERS: ATTEND Internal Medicine Cardiovascular Disease
DX: Z13.6 Encounter for screening for cardiovascular disorders (principal); I51.5 Myocardial degeneration; K44.9 Diaphragmatic hernia without obstruction or gangrene
CPT/HCPCS: 75571

== ENCOUNTER 2022-07-23 22:58 | Observation (INO) | payer OTHER ==
[~2022-07-23] VITALS: Ht 177.8 cm; Wt 54.4 kg
[2022-07-24 01:03] LABS: BASOPHILS % (AUTO) 0.1 % (0.0-5.0); EOSINOPHILS % (AUTO) 0.4 % (0.0-8.0); HEMATOCRIT 47.8 % (36-48); LYMPHOCYTES % (AUTO) 81.6 % (21.0-51.0); MEAN CORPUSCULAR HEMOGLOBIN 31.7 pg (27.0-33.0); MEAN CORPUSCULAR HGB CONC 33.1 g/dL (32.0-36.0); MEAN CORPUSCULAR VOLUME 95.8 fL (79-99); MONOCYTES % (AUTO) 1.6 % (3.0-13.0); NEUTROPHILS % (AUTO) 15.9 % (40.0-77.0); PLATELET COUNT (AUTO) 276 K/uL (130-400); RED BLOOD CELL COUNT(AUTO) 4.99 MIL/uL (4.00-5.50); RED CELL DISTRIBUTION WIDTH 13.1 % (11.0-15.5)
[2022-07-24 01:13] LABS: INR 0.93 (0.85-1.15); PROTHROMBIN TIME 10.2 SEC (9.6-11.6)
[2022-07-24 01:15] LABS: PARTIAL THROMBOPLASTIN TIME 24.2 SEC (26.3-35.5)
[2022-07-24 01:16] LABS: CREATININE 0.7 mg/dL (0.5-1.5); POTASSIUM 4.1 mmol/L (3.5-5.1)
[2022-07-24 01:18] LABS: APPEARANCE,URINE CLEAR (CLEAR); BILIRUBIN,URINE NEGATIVE (NEGATIVE); COLOR,URINE COLORLESS (YELLOW); GLUCOSE, URINE (UA) NEGATIVE (NEGATIVE); KETONES,URINE NEGATIVE (NEGATIVE); LEUKOCYTE ESTERASE ,URINE NEGATIVE Leu/uL (NEGATIVE); NITRATE,URINE NEGATIVE (NEGATIVE); OCCULT BLOOD,URINE NEGATIVE (NEGATIVE); PH,URINE 6.5 (5.0-8.0); PROTEIN,URINE NEGATIVE (NEGATIVE); UROBILINOGEN,URINE 0.2 mg/dL (0.2-1.0)
[2022-07-24 01:21] LABS: ALBUMIN 4.4 g/dL (3.5-5.0); TOTAL PROTEIN, SERUM 7.7 g/dL (6.0-8.3)
[2022-07-24 01:25] LABS: AMPHET/METH SCREEN,URINE NEGATIVE (NEGATIVE); BARBITURATE SCREEN, URINE NEGATIVE (NEGATIVE); BENZODIAZEPINES SCREEN,URINE NEGATIVE (NEGATIVE); CANNABINOID SCREEN,URINE NEGATIVE (NEGATIVE); COCAINE SCREEN,URINE NEGATIVE (NEGATIVE); OPIATE SCREEN,URINE NEGATIVE (NEGATIVE); PHENCYCLIDINE SCREEN,URINE NEGATIVE (NEGATIVE)
[2022-07-24 01:58] LABS: B-TYPE NATRIURETIC PEPTIDE 52 pg/mL (0-100)
[2022-07-24 02:09] LABS: BAND NEUTROPHILS % (MANUAL) 2 % (0-2); LYMPHOCYTES % (MANUAL) 75 % (22-44); MAN.DIFF COMMENT-IMPRESSION MANUAL DIFFERENTIAL; MONOCYTES % (MANUAL) 2 % (2-9); PLATELET MORPHOLOGY COMMENT ADEQUATE; SEGMENTED NEUTROPHILS % 21 % (40-70)
[2022-07-24] MEDS ORDERED: IOHEXOL 350 MG/ML 100ML INFUS..BTL IV ONE (02:59)
[2022-07-24] MEDS ORDERED: NITROGLYCERIN 0.4 MG SL TAB SL PRN (03:00)
[2022-07-24] MEDS ORDERED: GUAIFENESIN-DM 200/20 MG 10 ML PO PRN (03:00)
[2022-07-24] MEDS ORDERED: LACTULOSE 20 GM/30 ML UDCUP PO PRN (03:00)
[2022-07-24] MEDS ORDERED: MAG/ALUM/SIMETH 30 ML UDCUP PO PRN (03:00)
[2022-07-24] MEDS ORDERED: HYDRALAZINE 20MG/ML VIAL IV PRN (03:00)
[2022-07-24] MEDS ORDERED: ONDANSETRON 4MG INJ IV PRN (03:00)
[2022-07-24] MEDS ORDERED: ACETAMINOPHEN WITH CODEINE 1 TAB TAB PO PRN (03:00)
[2022-07-24 04:55] LABS: THYROID STIMULATING HORMONE 1.17 uIU/mL (0.36-3.74)
[2022-07-24] MEDS ORDERED: FAMOTIDINE 20MG TAB PO SCH ×2 (09:00)
[2022-07-24 09:25] VITALS: BP 150/86
[2022-07-24 12:12] VITALS: BP 140/91
[2022-07-24] MEDS ORDERED: FAMO40TA7 PO (13:19)
[2022-07-24] MEDS ORDERED: AMLO-257 PO (13:19)
[2022-07-24] MEDS ORDERED: PROP40TA7 PO (13:19)
[2022-07-24] MEDS ORDERED: MELO-108 PO (13:19)
[2022-07-24 16:07] VITALS: BP 103/59
[2022-07-24 19:29] VITALS: BP 143/84
[2022-07-24 20:50] VITALS: BP 109/53
[2022-07-24] MEDS: PROPRANOLOL HCL 20 MG TAB PO SCH (22:13)
[2022-07-24] MEDS: SODIUM BICARBONATE 650 MG TAB PO SCH (22:13)
[2022-07-24] MEDS: ALLOPURINOL 100 MG TABLET PO SCH (22:14)
[2022-07-24] MEDS: FAMOTIDINE 20MG TAB PO SCH (22:16)
[2022-07-24] MEDS: GABAPENTIN 100 MG CAPSULE PO SCH (22:16)
[2022-07-24 23:13] VITALS: BP 144/80
[2022-07-25] VITALS (14 sets, daily range): BP systolic 90–126; BP diastolic 48–91
[2022-07-25 06:15] LABS: INR 0.94 (0.85-1.15); PROTHROMBIN TIME 10.3 SEC (9.6-11.6)
[2022-07-25] MEDS: SODIUM BICARBONATE 650 MG TAB PO SCH ×3 (09:26→18:05)
[2022-07-25] MEDS: ALLOPURINOL 100 MG TABLET PO SCH ×3 (09:27→21:15)
[2022-07-25] MEDS: MELOXICAM 7.5 MG TABLET PO SCH (09:27)
[2022-07-25] MEDS: AMLODIPINE 5 MG TAB PO SCH (09:27)
[2022-07-25] MEDS: PROPRANOLOL HCL 20 MG TAB PO SCH ×2 (09:27→21:15)
[2022-07-25] MEDS: GABAPENTIN 100 MG CAPSULE PO SCH ×2 (09:27→21:15)
[2022-07-25] MEDS ORDERED: FENTANYL CITRATE PF 50 MCG/1 ML 2ML VIAL ONE (13:17)
[2022-07-25] MEDS: FAMOTIDINE 20MG TAB PO SCH (21:15)
[2022-07-26 03:17] VITALS: BP 103/65
[2022-07-26 06:08] LABS: HEMATOCRIT 39.1 % (36-48); MEAN CORPUSCULAR HEMOGLOBIN 32.2 pg (27.0-33.0); MEAN CORPUSCULAR VOLUME 97.5 fL (79-99); NUCLEATED RED BLOOD CELLS 0.1 % (0.0-0.19); PLATELET COUNT (AUTO) 217 K/uL (130-400); RED BLOOD CELL COUNT(AUTO) 4.01 MIL/uL (4.00-5.50); RED CELL DISTRIBUTION WIDTH 13.2 % (11.0-15.5)
[2022-07-26 06:22] LABS: CREATININE 0.7 mg/dL (0.5-1.5); POTASSIUM 3.8 mmol/L (3.5-5.1)
[2022-07-26 06:46] LABS: EOSINOPHILS % (MANUAL) 1 % (1-6); LYMPHOCYTES % (MANUAL) 78 % (22-44); MONOCYTES % (MANUAL) 3 % (2-9); SEGMENTED NEUTROPHILS % 18 % (40-70)
[2022-07-26 06:47] LABS: MAN.DIFF COMMENT-IMPRESSION MANUAL DIFFERENTIAL; PLATELET MORPHOLOGY COMMENT ADEQUATE
[2022-07-26 08:00] VITALS: BP 128/75
[2022-07-26] MEDS: ALLOPURINOL 100 MG TABLET PO SCH ×3 (09:00→21:02)
[2022-07-26] MEDS: AMLODIPINE 5 MG TAB PO SCH (09:33)
[2022-07-26] MEDS: SODIUM BICARBONATE 650 MG TAB PO SCH ×3 (09:34→16:59)
[2022-07-26] MEDS: PROPRANOLOL HCL 20 MG TAB PO SCH ×2 (11:30→21:01)
[2022-07-26] MEDS: MELOXICAM 7.5 MG TABLET PO SCH (11:31)
[2022-07-26] MEDS: GABAPENTIN 100 MG CAPSULE PO SCH ×2 (11:32→21:02)
[2022-07-26 12:00] VITALS: BP 100/61
[2022-07-26 16:00] VITALS: BP 132/72
[2022-07-26 20:00] VITALS: BP 122/73
[2022-07-26] MEDS: FAMOTIDINE 20MG TAB PO SCH (21:01)
[2022-07-27] VITALS: BP 120/74
[2022-07-27 04:00] VITALS: BP 128/76
[2022-07-27 07:30] VITALS: BP 125/86
[2022-07-27] MEDS: ALLOPURINOL 100 MG TABLET PO SCH ×2 (08:47→14:13)
[2022-07-27] MEDS: AMLODIPINE 5 MG TAB PO SCH (08:47)
[2022-07-27] MEDS: SODIUM BICARBONATE 650 MG TAB PO SCH ×2 (08:47→12:00)
[2022-07-27] MEDS: GABAPENTIN 100 MG CAPSULE PO SCH (08:47)
[2022-07-27] MEDS: MELOXICAM 7.5 MG TABLET PO SCH (08:48)
[2022-07-27] MEDS: PROPRANOLOL HCL 20 MG TAB PO SCH (08:48)
[2022-07-27 11:30] VITALS: BP 100/62
[2022-07-27 15:30] VITALS: BP 122/68
== END 2022-07-27 17:55 | disposition home or self-care (01) ==
LOC: EDH 22:58 → EDHIP 07-24 02:49 → WSH 07-24 09:30 → 3DH 07-24 20:54
PROVIDERS: ADMIT Internal Medicine Critical Care Medicine; ATTEND Internal Medicine Critical Care Medicine
DX: C91.00 Acute lymphoblastic leukemia not having achieved remission (principal); C64.9 Malignant neoplasm of unspecified kidney, except renal pelvis; E03.9 Hypothyroidism, unspecified; I10 Essential (primary) hypertension; E78.5 Hyperlipidemia, unspecified; R56.9 Unspecified convulsions; K76.0 Fatty (change of) liver, not elsewhere classified; I69.351 Hemiplegia and hemiparesis following cerebral infarction affecting right dominant side; W01.0XXA Fall on same level from slipping, tripping and stumbling without subsequent striking against object, initial encounter; Y93.89 Activity, other specified; Y92.89 Other specified places as the place of occurrence of the external cause; Z78.0 Asymptomatic menopausal state; Z90.710 Acquired absence of both cervix and uterus; Z79.899 Other long term (current) drug therapy
CPT/HCPCS: 99285; 84443; 82550; 83615; 83735; 84484 ×2; 80061; 80053; 83880; 80305; 85025; 85610 ×2; 85730; 85651; 87040 ×2; 84439; 88184; 88185; 84146; 82607; 84481; 81003; 36415 ×3; 71045 ×2; 73030; 70450; 71260; 74177; 72148; 93005; 88311; 88313; 88305; 88342; 88374; 88360; 10005; 76942; 97161; 97116 ×2; 88341; 80048; 85027; 97039; G0378 ×86; Q9967; J3010; C1830; C1894; 85007

== ENCOUNTER 2025-01-06 22:12 | Emergency (ER) | payer OTHER, MEDICAID ==
[~2025-01-06] VITALS: Ht 149.9 cm; Wt 63.0 kg
[~2025-01-06 22:12] MED LIST changes: +AMLO-257 PO; -ASPI-1197 PO; -CALC-131 PO; -CYAN250014 PO; +FAMO40TA7 PO; +MELO-108 PO; -OMEP40CA21 PO; -ONDA4TAB10 PO; -SIMV-43 PO; -TIZA4CAP8 PO
--- NOTE | 2025-01-06 22:45 | EKG ---
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
[2025-01-06 23:07] LABS: IMMATURE GRANULOCYTE ABSOLUTE 0.12 K/uL (0-1); NUCLEATED RED BLOOD CELLS 0.1 % (0.0-0.19); PLATELET COUNT (AUTO) 280 K/uL (130-400); RED BLOOD CELL COUNT(AUTO) 4.35 MIL/uL (4.00-5.50); RED CELL DISTRIBUTION WIDTH 13.3 % (11.0-15.5)
[2025-01-06 23:20] LABS: WHITE BLOOD COUNT (AUTO) 34.2 K/uL (4.8-10.8)
--- NOTE | 2025-01-06 23:23 | HMCIMG ---
EXAM: CT Head Without IV contrast. CLINICAL HISTORY: Headache and leg numbness. TECHNIQUE: Axial computed tomography images of the head/brain without intravenous contrast. COMPARISON: None provided. FINDINGS: BRAIN: Age-appropriate cerebral atrophy. Mild periventricular chronic small vessel ischemic changes. No evidence of acute hemorrhage. No mass lesion. No CT evidence for acute territorial infarct. No midline shift or extra-axial collections. VENTRICLES: No hydrocephalus. ORBITS: The orbits are unremarkable. SINUSES AND MASTOIDS: The paranasal sinuses and mastoid air cells are clear. BONES: No fracture. SOFT TISSUES: Unremarkable. IMPRESSION: No acute intracranial abnormality. Age-appropriate cerebral atrophy and chronic small vessel ischemic changes. /[place]
[2025-01-06 23:30] LABS: APPEARANCE,URINE CLEAR (CLEAR); GLUCOSE, URINE (UA) NEGATIVE (NEGATIVE); LEUKOCYTE ESTERASE ,URINE NEGATIVE Leu/uL (NEGATIVE); NITRATE,URINE NEGATIVE (NEGATIVE); OCCULT BLOOD,URINE NEGATIVE (NEGATIVE)
[2025-01-06 23:36] LABS: SQUAMOUS EPITHELIAL CELL,UR RARE /HPF (0-2)
[2025-01-06 23:39] LABS: INR 0.97 (0.85-1.15)
[2025-01-06 23:56] LABS: CREATININE 0.7 mg/dL (0.5-1.0); GLOMERULAR FILTR. RATE CALC 88.0 mL/min (>90); GLUCOSE,RANDOM 112.0 mg/dL (70-105); SODIUM SERUM 138.0 mmol/L (136-145); UREA NITROGEN, BLOOD 21.0 mg/dL (7-18)
--- NOTE | 2025-01-06 23:57 | ERN ---
General Chief Complaint: Numbness Stated Complaint: RT LEG NUMBNESS Time Seen by MD: 22:20 History of Present Illness Initial Comments 79-year-old female history of leukemia came in for low back pain radiating to right leg after carrying some boxes earlier today. Patient is a that she is able to walk without any concerns. Patient otherwise has no problems. Allergies: Coded Allergies: rifampin (Unverified Allergy, Intermediate, burning to head, 04/16/20) No Known Drug Allergies (Verified Allergy, Unknown, 11/16/18) Home Meds Reported Medications Meloxicam (Meloxicam) 15 Mg Tablet, 15 MG PO DAILY 07/24/22 Famotidine (Famotidine) 40 Mg Tablet, 40 MG PO HS 07/24/22 Amlodipine Besylate (Amlodipine Besylate) 5 Mg Tablet, 5 MG PO DAILY 07/24/22 Propranolol HCl (Inderal) 40 Mg Tab, 40 MG PO BID 07/24/22 Past Medical History Past Medical History: High Cholesterol, Hypertension, Hypothyroid Medical History Other: LEUKEMIA Past Surgical History: Hysterectomy, Cholecystectomy, Other Surgical History Other: HERNIA Family History Family History: Negative Social History Social History: Lives with family, Other ROS Dictation Sciatica Physical Exam General Appearance: (+) no apparent distress Orientation: (+) alert, (+) oriented x 3 Neck: (+) normal inspection, (+) supple Respiratory: (+) chest non-tender, (+) lungs clear Heart: (+) regular, (+) no gallop Vascular: (+) no edema, (+) normal peripheral pulse Gastrointestinal: (+) soft, (+) non-tender, (+) no organomegaly, (+) bowel sound present Extremities: (+) normal range of motion, (+) non-tender Neurologic/Psychiatric: (+) normal speech, (+) no motor defecits, (+) no sensory deficits, (+) 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, (+) normal gait Results Laboratory and Microbiology Lab and Micro Result Laboratory Tests Test 01/06/25 22:15 01/06/25 23:11 White Blood Count 34.2 K/uL (4.8-10.8) *H Red Blood Count 4.35 MIL/uL (4.00-5.50) Hemoglobin 13.7 g/dL (12.0-16.0) Hematocrit 42.5 % (36-48) Mean Corpuscular Volume 97.7 fL (79-99) Mean Corpuscular Hemoglobin 31.5 pg (27.0-33.0) Mean Corpuscular Hemoglobin Concent 32.2 g/dL (32.0-36.0) Red Cell Distribution Width 13.3 % (11.0-15.5) Platelet Count 280 K/uL (130-400) Mean Platelet Volume 9.8 fL (7.5-10.5) Immature Granulocyte % (Auto) 0.4 % (0-1) Neutrophils (%) (Auto) 17.5 % (40.0-77.0) L Lymphocytes (%) (Auto) 79.2 % (21.0-51.0) H Monocytes (%) (Auto) 2.2 % (3.0-13.0) L Eosinophils (%) (Auto) 0.4 % (0.0-8.0) Basophils (%) (Auto) 0.3 % (0.0-5.0) Neutrophils # (Auto) 6.0 K/uL (1.8-7.7) Lymphocytes # (Auto) 27.1 K/uL (1.0-4.8) H Monocytes # (Auto) 0.8 K/uL (0.1-1.0) Eosinophils # (Auto) 0.12 K/uL (0.00-0.70) Basophils # (Auto) 0.09 K/uL (0.00-0.20) Absolute Immature Granulocyte (auto 0.12 K/uL (0-1) Nucleated Red Blood Cells 0.1 % (0.0-0.19) Prothrombin Time 10.3 SEC (9.6-11.6) Prothromb Time International Ratio 0.97 (0.85-1.15) Activated Partial Thromboplast Time 24.0 SEC (26.3-35.5) L Lactic Acid Level 1.7 mmol/L (0.8-2.5) Troponin I High Sensitivity 5 ng/L (4-50) Urine Color COLORLESS (YELLOW) Urine Appearance CLEAR (CLEAR) Urine pH 7.0 (5.0-8.0) Urine Specific [place] 1.006 (1.001-1.031) Urine Protein NEGATIVE mg/dL (NEGATIVE) Urine Glucose (UA) NEGATIVE mg/dL (NEGATIVE) Urine Ketones NEGATIVE mg/dL (NEGATIVE) Urine Occult Blood NEGATIVE (NEGATIVE) Urine Nitrate NEGATIVE (NEGATIVE) Urine Bilirubin NEGATIVE mg/dL (NEGATIVE) Urine Urobilinogen 0.2 mg/dL (0.2-1.0) Urine Leukocyte Esterase NEGATIVE [place]/uL Urine RBC None /HPF (0-1) Urine WBC 0-1 /HPF (0-1) Urine Squamous Epithelial Cells RARE /HPF (0-2) Urine Bacteria None /HPF (None Seen) MDM MDM: Differential diagnosis: Rationale: Tests considered and ordered secondary to shared decision making include: Previous outside records reviewed: Old ER visits. Risk of complication and/or morbidity or mortality of patient management: None Medications-Per medication reconciliation Need for hospitalization: Patient does not meet criteria for hospitalization. Need for emergency major/minor surgery: No There are no social concerns with this patient. Prescription drug management Prescriptions will include symptomatic care Patient's prior external medical records from other ER visits were reviewed by me as indicated. Prior testing and results from previous visits were reviewed. Prior tests were taken into account with medical decision making and resource utilization, independent historian/historians were used to obtain complete medical history. I independently interpreted the test that were performed, results were reviewed by me and considered findings on radiology if ordered. Medical management and examination interpretation discussions were had by me with other qualified healthcare professionals as indicated for the patient's care. ED Course Orders Procedure Category Date Status Time 12 Lead Ekg Tracing- EKG 01/06/25 Complete Technical 22:22 Cbc With Differential LAB 01/06/25 In Process 22:22 Basic Metabolic Panel LAB 01/06/25 In Process 22:22 Lactic Acid LAB 01/06/25 In Process 22:22 Procalcitonin LAB 01/06/25 In Process 22:22 Pt And Ptt LAB 01/06/25 Complete 22:22 Troponin I High LAB 01/06/25 Complete Sensitivity 22:22 Urinalysis LAB 01/06/25 Complete W/Microscopic 22:22 Chest 1vw RAD 01/06/25 Taken 22:22 Ct Head/Brain W/O CT 01/06/25 Resulted Contrast 22:22 Manual Differential LAB 01/06/25 In Process 22:15 Ketorolac PHA 01/06/25 Complete Tromethamine 30mg/Ml 23:30 Current Medications Medications (Trade) Dose Ordered Sig/Mery Route PRN Reason Start Time Stop Time Status Last Admin Dose Admin Ketorolac Tromethamine (toRADol) 30 mg ONCE ONCE IVP 01/06/25 23:30 01/06/25 23:33 DC 01/06/25 23:51 Vital Signs Date Time Temp Pulse Resp B/P (MAP) Pulse Ox O2 Delivery O2 Flow Rate FiO2 01/06/25 22:39 97.5 81 17 137/71 99 Room Air* 0 21 01/06/25 22:14 98.4 84 16 155/83 99 Room Air DX & DISP Disposition: Discharge Departure Impression: Primary Impression: Sciatica Condition: Stable Referrals: JITENDRA HOYOS MD (PCP) DEVYN DARDEN MD Jan 06, 2025 23:57
--- NOTE | 2025-01-07 00:04 | HMCIMG ---
EXAM: CR Chest, 1 view CLINICAL HISTORY: Shortness of breath. COMPARISON: None provided. FINDINGS: The lungs show no infiltrates or other acute findings. No pleural effusion or pneumothorax. The cardiomediastinal silhouette is within normal limits. Mild atherosclerotic aorta. No acute osseous abnormality. Mild osteopenia. IMPRESSION: No acute cardiopulmonary process is evident. /[place]
[2025-01-07 00:05] VITALS: BP 152/73; PULSE 63; RESP 15; TEMP 97.5; O2SAT 99
[2025-01-07 00:59] LABS: BAND NEUTROPHILS % (MANUAL) 1 % (0-2); EOSINOPHILS % (MANUAL) 1 % (1-6); LYMPHOCYTES % (MANUAL) 76 % (22-44); MAN.DIFF COMMENT-IMPRESSION MANUAL DIFFERENTIAL; MONOCYTES % (MANUAL) 4 % (2-9); SEGMENTED NEUTROPHILS % 18 % (40-70)
[2025-01-07 01:00] LABS: PLATELET MORPHOLOGY COMMENT ADEQUATE; WBC MORPHOLOGY SMUDGE CELLS 2+
== END 2025-01-07 00:16 | disposition home or self-care (01) ==
LOC: EDH 22:12
DX: M54.41 Lumbago with sciatica, right side (principal); E78.00 Pure hypercholesterolemia, unspecified; I10 Essential (primary) hypertension; E03.9 Hypothyroidism, unspecified; Z79.1 Long term (current) use of non-steroidal anti-inflammatories (NSAID); Z79.899 Other long term (current) drug therapy; Z90.49 Acquired absence of other specified parts of digestive tract; Z90.710 Acquired absence of both cervix and uterus; Z85.6 Personal history of leukemia
CPT/HCPCS: 99285; 96374; 70450; 71045; 84484; 80048; 85025; 85610; 85730; 83605; 81001; 36415; 93005; 84145; J1885